=== PATIENT | female | born 1995 | race Hispanic/Latino ===

== ENCOUNTER 2018-10-25 23:00 | Inpatient (IN) | payer OTHER ==
[2018-10-27 01:05] VITALS: BMI 56.7
[2018-10-27] MEDS ORDERED: Lidocaine 1% (PF) 30 ML VIAL SC PRN (01:16)
[2018-10-27] MEDS ORDERED: Ondansetron PF 4 MG/2 ML Vial IVP PRN ×3 (01:16→23:24)
[2018-10-27] MEDS ORDERED: Promethazine HCl 25 MG/ML VIAL IM PRN ×3 (01:16→23:24)
[2018-10-27] MEDS ORDERED: NS w/ Oxytocin 10 units 500 ML IV SCH (01:16)
[2018-10-27] MEDS ORDERED: NS / Oxytocin 40 units/1000ml 1,000 ML IV PRN (01:16)
[2018-10-27] MEDS ORDERED: Ibuprofen 800 MG TAB PO PRN (01:16)
[2018-10-27] MEDS ORDERED: Diphenoxylate HCl/Atropine Tablet PO PRN (01:16)
[2018-10-27] MEDS ORDERED: Penicillin G Potassium 5 MILL.UNITS in Sodium Chloride 0.9% 100 ML IVPB SCH (01:16)
[2018-10-27] MEDS ORDERED: Carboprost 250 MCG/ML AMP IM PRN (01:16)
[2018-10-27] MEDS ORDERED: HYDROcodone/Acetaminophen 5/325 mg Tablet PO PRN (01:16)
[2018-10-27] MEDS ORDERED: Methylergonovine 0.2 MG/ML VIAL IM PRN (01:16)
[2018-10-27] MEDS ORDERED: Butorphanol Tartrate 1 MG/ML VIAL SLOW IVP PRN (01:16)
[2018-10-27] MEDS: Lactated Ringer's 1,000 ML IV SCH ×3 (01:45→15:58)
[2018-10-27 01:52] LABS: Hemoglobin 13.2 g/dL (12.0-16.0); Mean Corpuscular Volume 88.7 fL (78.0-98.0); Mean Platelet Volume 8.5 fL (7.4-10.4); Platelet Count 285 thou/uL (130-400); RBC Distribution Width 11.2 % (11.5-14.5); Red Blood Cell (RBC) Count 4.24 mill/uL (4.20-5.40); White Blood Cell (WBC) Count 8.2 thou/uL (4.8-10.8)
[2018-10-27 02:25] LABS: HBSAg Index 0.18 S/CO (0-0.99); Hep B Surf Ag Non-Reactive S/CO (NonReactive)
[2018-10-27 05:48] LABS: Syphilis Antibody Nonreactive (Nonreactive); Syphilis Antibody Index 0.03 S/CO (<1.00 Non-Reactive)
[2018-10-27] MEDS: Penicillin G 2.5 MILL.units 2.5 MILL.UNITS in Premix Bag 1 BAG IVPB SCH ×4 (06:09→20:18)
[2018-10-27] MEDS: NS w/ Oxytocin 10 units 500 ML IV SCH (06:10)
[2018-10-27] MEDS: Misoprostol 100 MCG TAB PO SCH (06:10)
[2018-10-27] MEDS ORDERED: Fentanyl 4 mcg/Bup 0.1% Cadd 100 ML ONE ×3 (15:25→23:09)
[2018-10-27] MEDS ORDERED: Lactated Ringer's 500 ML IV PRN (16:17)
[2018-10-27] MEDS ORDERED: diphenhydrAMINE 50 MG/ML VIAL IVP PRN ×2 (16:17→23:24)
[2018-10-27] MEDS ORDERED: ePHEDrine/0.9% NaCl/PF SYRINGE 50 mg/10 ml SLOW IVP PRN (16:17)
[2018-10-27] MEDS ORDERED: Acetaminophen 325 MG TAB PO PRN (16:17)
[2018-10-27] MEDS ORDERED: Naloxone HCl 0.4 mg/ml Vial IVP PRN ×4 (16:17→23:24)
[2018-10-27] MEDS ORDERED: Eucerin (Mineral Oil/Petrolatum,White) 30 gm Jar TOP PRN (16:17)
[2018-10-27] MEDS ORDERED: Fentanyl 4 mcg/Bupivacaine 0.1% Cassette 100 ML EPIDURAL SCH (16:30)
[2018-10-27] MEDS ORDERED: Communication Order-Pharmacy FS SCH ×2 (16:30→23:30)
[2018-10-27] MEDS ORDERED: CEFAZOLIN 2 GM/50 ML BAG ONE (23:17)
--- NOTE | 2018-10-27 23:18 | PDOC.EVN ---
Event Note - Event Note Event Note: Asked to examine pt. by Dr. Arthur. SVE by me is tight 5/ vtx high. Thick mec. seen. FHT stable. Ucs q 2-3 mins. Report given to [address] Arthur; wants to proceed with 1* C/S.
[2018-10-27] MEDS ORDERED: Naloxone HCl 0.4 mg/ml Vial IV PRN (23:24)
[2018-10-27] MEDS ORDERED: Promethazine HCl 25 MG SUPP PR PRN (23:24)
[2018-10-27] MEDS ORDERED: Ketorolac Tromethamine 30 MG/ML VIAL IVP PRN (23:24)
[2018-10-27] MEDS ORDERED: Meperidine HCl/PF 25 MG/ML VIAL SLOW IVP PRN (23:24)
[2018-10-27] MEDS ORDERED: L&D-Morphine 4 MG/ML VIAL SLOW IVP PRN (23:24)
[2018-10-27] MEDS ORDERED: HYDROmorphone 2 MG/ML VIAL SLOW IVP PRN (23:24)
[2018-10-27] MEDS ORDERED: Ondansetron HCl/PF 4 MG/2 ML Vial IVP PRN (23:24)
[2018-10-27] MEDS ORDERED: Hydrocerin (Eucerin) Cream 120 gm Jar TOP PRN (23:24)
[2018-10-27] MEDS ORDERED: Lidocaine 2% 10 ML INJ ONE (23:26)
[2018-10-27] MEDS ORDERED: Ketorolac Tromethamine 30 MG/ML VIAL IVP SCH (23:30)
[2018-10-27] MEDS ORDERED: CEFAZOLIN 1 GM VIAL ONE (23:45)
[2018-10-27] MEDS ORDERED: Ketorolac Tromethamine 30 MG/ML VIAL ONE (23:53)
[2018-10-27] MEDS ORDERED: Dexamethasone 4 mg/ml Vial ONE (23:53)
[2018-10-27] MEDS ORDERED: Oxytocin 10 UNITS/ML VIAL ONE (23:53)
[2018-10-27] MEDS ORDERED: Ondansetron PF 4 MG/2 ML Vial ONE (23:53)
[2018-10-28] MEDS ORDERED: Fentanyl 100 MCG/2 ML VIAL ONE (00:03)
[2018-10-28] MEDS ORDERED: Meperidine HCl/PF 25 MG/ML VIAL ONE (00:04)
[2018-10-28] MEDS ORDERED: Morphine PF 1 MG/ML SYR ONE (00:08)
[2018-10-28 00:15] LABS: Actual Bicarbonate (HCO3v) 24 mEq/L (22-28); Base Excess -1.6 mEq/L (-2.0 to +3.0); pH (Cord, venous) 7.35 (7.32-7.43)
[2018-10-28 00:16] LABS: Actual Bicarbonate (HCO3a) 23.5 mEq/L (22-28); Base Excess (BEa) -3.4 mEq/L (-2.0 to +3.0)
[2018-10-28] MEDS ORDERED: diphenhydrAMINE 25 MG CAP PO PRN (02:38)
[2018-10-28] MEDS ORDERED: Lanolin Ointment 7 GM TUBE TOP PRN (02:38)
[2018-10-28] MEDS ORDERED: Ondansetron PF 4 MG/2 ML Vial IVP PRN (02:38)
[2018-10-28] MEDS ORDERED: Bisacodyl 10 MG SUPP PR PRN (02:38)
[2018-10-28] MEDS ORDERED: Meperidine HCl/PF 25 MG/ML VIAL IM PRN (02:38)
[2018-10-28] MEDS ORDERED: NS / Oxytocin 40 units/1000ml 1,000 ML IV SCH (02:38)
[2018-10-28 07:06] LABS: Hemoglobin 11.8 g/dL (12.0-16.0); Mean Corpuscular HGB CONC 34.1 g/dL (32.0-36.0); Mean Corpuscular Hemoglobin 30.3 pg (27.0-31.0); Mean Corpuscular Volume 88.8 fL (78.0-98.0); Platelet Count 233 thou/uL (130-400); Red Blood Cell (RBC) Count 3.91 mill/uL (4.20-5.40); White Blood Cell (WBC) Count 14.1 thou/uL (4.8-10.8)
--- NOTE | 2018-10-28 07:06 | OP ---
DATE OF PROCEDURE: 10/28/2018 RESIDENT SURGEON: Dharmesh Ivey MD. CONTINUING EDUCATION DEAN SURGEON: Ochoa Vizcarra MD. PRIMARY SURGEON: Claude Arthur MD. PROCEDURE PERFORMED: Primary low-transverse . PREOPERATIVE DIAGNOSES: 1. Term intrauterine . 2. Thick meconium. 3. Failure to progress. 4. Morbid obesity. POSTOPERATIVE DIAGNOSES: 1. Term intrauterine . 2. Thick meconium. 3. Failure to progress. 4. Morbid obesity. ANESTHESIA: Epidural. INDICATIONS FOR PROCEDURE: The patient is a 23-year-old G1, P0 female at 40-2/ 7th weeks' gestation, who presents for labor symptoms. AROM was completed and showed thick meconium. The patient failed to progress past 5 cm. DESCRIPTION OF PROCEDURE: After risks, benefits, and alternatives were explained to the patient, she gave informed consent. Preoperative antibiotics included 2 g cefazolin. The patient was taken to the operating room, where epidural anesthesia was found to be sufficient. She was placed in supine position with left tilt, prepped and draped in usual sterile fashion. A Pfannenstiel incision was made with scalpel and carried down to the level of fascia, which was sharply nicked. All bleeders were cauterized. The fascial cut was extended bilaterally with Pillai scissors. The inferior and superior cut edges of the fascia were elevated with Tarun clamps and the underlying rectus muscles were sharply and bluntly dissected free. The recti were divided digitally and retracted manually. The peritoneum was entered bluntly and retracted manually. The bladder blade was placed. A low-transverse score was made with the scalpel and the uterus was entered in the midline with the scalpel. Thick meconium was appreciated. The hysterotomy was extended manually. The infant was noted to be vertex and easily delivered with fundal pressure. Mouth and nares were bulb suctioned. Cord was clamped and cut , and grossly normal female handed to the awaiting nurse. Cord blood and cord gas were obtained. Placenta was manually extracted, found to be intact with three-vessel cord and discarded. The uterus was externalized and the endometrium was curetted with dry lap. Bladder blade was replaced and the uterus was closed with running 0 Vicryl suture in a running nonlocking fashion. Three figure-of- eight sutures were placed using 0 Vicryl. Following this, hemostasis was noted. The abdomen was irrigated and suctioned free of clots. The uterus was internalized and the hysterotomy again noted to be hemostatic. The peritoneum was closed using 2 -0 Vicryl. The fascia was closed using a running nonlocking 0 Vicryl suture. Subcutaneous tissue was irrigated and bleeders were cauterized. The subcutaneous tissue was approximated with 3 simple interrupted 0 Vicryl sutures. The skin was approximated with rohini and a wound VAC was placed. All counts were correct. The patient tolerated the procedure well and was taken to the recovery room in stable condition. QUANTITATIVE BLOOD LOSS: 696ml COMPLICATIONS: None. SPECIMENS: Cord gas, cord blood, and placenta sent to lab. FINDINGS: Grossly normal female . DRAINS: Betancourt to gravity draining clear urine. Job ID: [id number] [facility]
[2018-10-28] MEDS: Misoprostol 100 MCG TAB PO SCH (07:26)
[2018-10-28] MEDS: Ibuprofen 800 MG TAB PO SCH ×3 (07:28→20:48)
[2018-10-28] MEDS: Penicillin G 2.5 MILL.units 2.5 MILL.UNITS in Premix Bag 1 BAG IVPB SCH ×2 (07:33→07:34)
[2018-10-28] MEDS: NS w/ Oxytocin 10 units 500 ML IV SCH (07:34)
[2018-10-28] MEDS: Lactated Ringer's 1,000 ML IV SCH (07:34)
[2018-10-28] MEDS: Docusate Calcium (SURFAK) 240 MG CAP PO SCH ×2 (08:30→20:48)
[2018-10-28] MEDS: Ferrous Sulfate 325 MG TAB PO SCH ×2 (08:30→22:57)
[2018-10-28] MEDS: Prenatal Vitamin 1 TAB PO SCH (08:33)
[2018-10-28] MEDS ORDERED: Ondansetron PF 4 MG/2 ML Vial ONE (12:46)
[2018-10-28] MEDS ORDERED: Ketorolac Tromethamine 30 MG/ML VIAL ONE (12:46)
[2018-10-28] MEDS ORDERED: Dexamethasone 20 MG/5 ML VIAL ONE (12:46)
[2018-10-28] MEDS: HYDROcodone/Acetaminophen 5/325 mg Tablet PO PRN (20:48)
[2018-10-28] MEDS: Simethicone Chewable 80 MG TAB PO PRN (20:48)
--- NOTE | 2018-10-29 01:02 | PDOC.PP ---
Post Progress Note Post Day #: 1 Subjective: Patient doing well. No significant overnight events. Patient tolerating PO. She has been ambulating without difficulty. Minimal lochia. PO intake tolerated: yes Flatus: yes Ambulation: yes Vital Signs (12 hours) Temp Pulse Resp BP Pulse Ox 10/28/18 20:00 98.3 F 82 16 127/80 97 10/28/18 14:35 98.3 F 87 18 131/77 95 Weight Weight 136.078 kg - Physical Examination General: NAD Cardiovascular: no m/r/g, RRR Respiratory: clear to auscultation bilaterally, non-labored breathing Abdominal: + bowel sounds, lochia (like that of period), no distention, appropriately TTP Fundus firm & at: umbilicus Extremities: negative homans (B) Deviation from normal: Wound vac in place, no leaking Neurological: no gross focal deficits Psychiatric: A&Ox3, normal affect Result Diagrams: 10/28/18 06:38 Additional Labs: Post Labs Blood Type O POSITIVE 10/27/18 01:43 Hep Bs Antigen Non-Reactive S/CO (NonReactive) 10/27/18 01:43 (1) S/P primary low transverse Code(s): Z98.891 - HISTORY OF UTERINE SCAR FROM PREVIOUS SURGERY Status: Acute (2) Term delivered Code(s): O80 - ENCOUNTER FOR FULL-TERM UNCOMPLICATED DELIVERY Status: Acute (3) Obesity Code(s): E66.9 - OBESITY, UNSPECIFIED Status: Chronic (4) Positive GBS test Code(s): B95.1 - STREPTOCOCCUS, GROUP B, CAUSING DISEASES CLASSD ELSWHR Status : Acute - Assessment/Plan 1. s/p pLTCS for FTP, obesity - Uncomplicated pLTCS - routine PP care - Wound vac in place - Encourage ambulation 2. GBS positive - Patient had pLTCS 3. Obesity - Wound vac placed after c/s 4. Term , delivered - See plan as above Dispo: Continue routine PP care. <Katharine Holguin - Last Filed: 10/29/18 01:04> Vital Signs (12 hours) Temp Pulse Resp BP Pulse Ox 10/28/18 20:00 98.3 F 82 16 127/80 97 10/28/18 14:35 98.3 F 87 18 131/77 95 Weight Weight 300 lb Result Diagrams: 10/28/18 06:38 Additional Labs: Post Labs Blood Type O POSITIVE 10/27/18 01:43 Hep Bs Antigen Non-Reactive S/CO (NonReactive) 10/27/18 01:43 - Assessment/Plan Faculty note: Postop day 1...no acute concerns. Continue routine PP care <Aaron Thornton - Last Filed: 10/29/18 01:09>
[2018-10-29] MEDS: HYDROcodone/Acetaminophen 5/325 mg Tablet PO PRN ×4 (01:10→22:31)
[2018-10-29] MEDS: Ibuprofen 800 MG TAB PO SCH ×3 (05:14→21:07)
[2018-10-29] MEDS: Prenatal Vitamin 1 TAB PO SCH (08:44)
[2018-10-29] MEDS: Docusate Calcium (SURFAK) 240 MG CAP PO SCH ×2 (08:45→21:07)
[2018-10-29] MEDS: Ferrous Sulfate 325 MG TAB PO SCH ×2 (11:21→20:23)
[2018-10-29] MEDS: Simethicone Chewable 80 MG TAB PO PRN (21:07)
--- NOTE | 2018-10-30 00:52 | PDOC.PP ---
Post Progress Note Post Day #: POD#2 Subjective: Resting comfortably. C/o occasional incision pain. PO intake tolerated: yes Flatus: no Ambulation: yes Vital Signs (12 hours) Temp Pulse Resp BP BP Pulse Ox 10/29/18 20:00 97.7 F 79 16 105/61 99 10/29/18 15:15 97.8 F 84 18 123/73 97 Weight Weight 136.078 kg - Physical Examination General: NAD Respiratory: non-labored breathing Abdominal: no distention Psychiatric: A&Ox3, normal affect Result Diagrams: 10/28/18 06:38 Additional Labs: Post Labs Blood Type O POSITIVE 10/27/18 01:43 Hep Bs Antigen Non-Reactive S/CO (NonReactive) 10/27/18 01:43 - Assessment/Plan Stable postop. Advance diet. Ambulate.
[2018-10-30] MEDS ORDERED: Sodium Chloride 0.9% 10 ML ONE (00:54)
[2018-10-30] MEDS: HYDROcodone/Acetaminophen 5/325 mg Tablet PO PRN ×2 (03:12→17:04)
[2018-10-30] MEDS: Ibuprofen 800 MG TAB PO SCH ×3 (05:31→21:44)
[2018-10-30] MEDS ORDERED: Bupivacaine/Epinephrine 0.25% 30 ML VIAL ONE (07:22)
[2018-10-30] MEDS: Ferrous Sulfate 325 MG TAB PO SCH ×2 (09:00→21:43)
[2018-10-30] MEDS: Docusate Calcium (SURFAK) 240 MG CAP PO SCH ×2 (09:01→21:43)
[2018-10-30] MEDS: Prenatal Vitamin 1 TAB PO SCH (09:01)
[2018-10-31] MEDS: HYDROcodone/Acetaminophen 5/325 mg Tablet PO PRN (02:27)
[2018-10-31] MEDS: Ibuprofen 800 MG TAB PO SCH (06:23)
[2018-10-31 08:08] VITALS: BP 136/75; TEMP 98
[2018-10-31] MEDS: Prenatal Vitamin 1 TAB PO SCH (08:57)
[2018-10-31] MEDS: Docusate Calcium (SURFAK) 240 MG CAP PO SCH (08:57)
[2018-10-31] MEDS: Ferrous Sulfate 325 MG TAB PO SCH (08:57)
--- NOTE | 2018-11-01 04:53 | DIS ---
DATE OF ADMISSION: 10/27/2018 DATE OF DISCHARGE: 10/31/2018 ADMITTING DIAGNOSES: 1. Intrauterine at 41 weeks. 2. Induction of labor. DISCHARGE DIAGNOSES: 1. Intrauterine at 41 weeks. 2. Induction of labor. 3. Failure to progress and primary section. PROCEDURE: Primary section. CONSULTATIONS: None. HOSPITAL COURSE: The patient is a 23-year-old G1, P0 female with an intrauterine at 41 weeks, present for induction of labor. Her induction was complicated by failure to progress or rest of labor and ultimately resulted in a primary . For complete details, please refer to the operative note. The patient's postoperative course has been uncomplicated. Today is postoperative day #3. The patient reports that she is tolerating p.o., having good pain control, voiding on her own and decreased lochia. Her vital signs this morning, blood pressure is 122/88, pulse of 82, respiratory rate is 16, saturating 100% on room air. In general, she appears to be in no acute distress. She is alert and oriented, cooperative, pleasant to interact with. Head; normocephalic, atraumatic. Fundus is firm. Her incision is clean, dry, intact with rohini. Extremities; nontender and nonedematous. Her post delivery hemoglobin and hematocrit are 11.8 and 34.7, platelets of 233,000. The patient is being discharged to home with ibuprofen and Tylenol No. 3 for pain control. She has instructions to follow up with her primary OB, Dr. Arthur, in the next few days for staple removal and incision check. She has instructions to seek medical attention sooner if she experiences fever, increasing pain, bleeding, drainage, or redness at the incision site. Job ID: [id number]
== END 2018-10-31 12:10 | disposition home or self-care (01) | DRG 787 ==
LOC: L&D 10-27 00:32 → 3SW 10-28 14:23
PROVIDERS: ADMIT Family Medicine; ATTEND Family Medicine
PROC: 10907ZC Drainage of Amniotic Fluid, Therapeutic from Products of Conception, Via Natural or Artificial Opening (ICD-10-PCS; 2018-10-27)
PROC: 10D00Z1 Extraction of Products of Conception, Low, Open Approach (ICD-10-PCS; principal; 2018-10-28)
DX: O64.8XX0 Obstructed labor due to other malposition and malpresentation, not applicable or unspecified (principal); Z68.43 Body mass index [BMI] 50.0-59.9, adult; O98.813 Other maternal infectious and parasitic diseases complicating pregnancy, third trimester; Z3A.40 40 weeks gestation of pregnancy; Z37.0 Single live birth; O77.0 Labor and delivery complicated by meconium in amniotic fluid; E66.01 Morbid (severe) obesity due to excess calories; Z71.3 Dietary counseling and surveillance; O99.213 Obesity complicating pregnancy, third trimester; O48.0 Post-term pregnancy; Z3A.41 41 weeks gestation of pregnancy; B95.1 Streptococcus, group B, as the cause of diseases classified elsewhere
CPT/HCPCS: 36415; 51702; 82805; 85027; 86780; 86850; 86900; 86901; 87340; 88307; J0690; J1100; J1885; J2175; J2274; J2405; J2540; J2590; J3010; J7050

== ENCOUNTER 2021-03-08 12:58 | Observation (INO) | payer OTHER, SELFPAY ==
[~2021-03-08 12:58] MED LIST: Iopamidol-370 76% 500 ML 1 ML ONE
[2021-03-08] MEDS ORDERED: Ondansetron PF 4 MG/2 ML Vial ONE (13:37)
[2021-03-08] MEDS ORDERED: Morphine 4 MG/ML VIAL ONE (13:37)
[2021-03-08 13:49] LABS: #Lymphocytes 1.4 thou/uL (1.20-3.40); #Monocytes 0.4 thou/uL (0.11-0.59); #Neutrophils 2.7 thou/uL (1.40-6.50); %Basophils 0.5 % (0.0-1.0); %Eosinophils 0.6 % (0.0-10.0); %Lymphocytes 30.2 % (21.0-51.0); %Monocytes 7.9 % (0.0-10.0); %Neutrophils 60.7 % (42.0-75.0); Hemoglobin 13.4 g/dL (12.0-16.0); Mean Corpuscular HGB CONC 33.5 g/dL (32.0-36.0); Mean Corpuscular Hemoglobin 31.3 pg (27.0-31.0); Mean Corpuscular Volume 93.5 fL (78.0-98.0); Mean Platelet Volume 8.3 fL (7.4-10.4); Platelet Count 244 thou/uL (130-400); RBC Distribution Width 10.9 % (11.5-14.5); Red Blood Cell (RBC) Count 4.27 mill/uL (4.20-5.40); White Blood Cell (WBC) Count 4.5 thou/uL (4.8-10.8)
[2021-03-08 13:54] LABS: BHCG - Serum Negative (NEGATIVE); Pregs Control Background? CLEAR/WHITE (CLR/WHITE); Pregs Control Bar Appear? YES (CONTROL BAR)
[2021-03-08 14:10] LABS: ALT (SGPT) 408 U/L (8-55); AST (SGOT) 475 U/L (5-34); Albumin 4.3 g/dL (3.5-5.0); Alkaline Phosphatase 114 U/L (40-110); Anion Gap 11 mmol/L (10-20); BUN (Urea Nitrogen) 9 mg/dL (7.0-18.7); Bilirubin, Total 2.1 mg/dL (0.2-1.2); Calc. Creatinine Clearance 0 mL/min (70-130); Calcium 9.6 mg/dL (7.8-10.44); Carbon Dioxide 27 mmol/L (22-29); Chloride 104 mmol/L (98-107); Globulin 3.2 g/dL (2.4-3.5); Glucose 116 mg/dL (70-105); Lipase 12 U/L (8-78); Potassium 3.9 mmol/L (3.5-5.1); Protein, Total 7.5 g/dL (6.0-8.3); Sodium 138 mmol/L (136-145)
[2021-03-08 14:18] LABS: Pregnancy Test - Urine (BHCG) Negative (Negative); Pregu Control Background? CLEAR/WHITE (CLR/WHITE); Pregu Control Bar Appear? YES (CONTROL BAR); Specific Gravity 1.033 (1.002-1.036)
[2021-03-08 14:20] LABS: Bacteria/HPF None Seen HPF (None Seen); Bilirubin 1+ (Negative); Blood, Urine Negative (Negative); Clarity Clear (Clear); Glucose, Urine (Dipstick) Normal (Negative); Ketone, Urine Negative (Negative); Leukocyte 25 Leu/uL (Negative); Nitrite Negative (Negative); Protein, Urine (Dipstick) 50 mg/dL (Neg-Trace); RBC/HPF 0-3 HPF (0-3); Specific Gravity, Urine 1.033 (1.002-1.036); Urobilinogen 3 mg/dL (Less than 2)
[2021-03-08] MEDS ORDERED: Pantoprazole 40 MG VIAL ONE (16:36)
[2021-03-08] MEDS ORDERED: Dextrose 5% in Water 1,000 ML IV PRN (16:58)
[2021-03-08] MEDS ORDERED: Promethazine HCl 25 MG/ML VIAL IM PRN (16:58)
[2021-03-08] MEDS ORDERED: Mag-Al 1200 mg/1200 mg/30 ML UDCUP PO PRN (16:58)
[2021-03-08] MEDS ORDERED: Dextrose 50% Abboject 50 ML SYRINGE SLOW IVP PRN (16:58)
[2021-03-08] MEDS ORDERED: Calcium Carbonate 500 MG ChewTAB PO PRN (16:58)
[2021-03-08] MEDS ORDERED: hydrALAZINE 20 MG/ML VIAL SLOW IVP PRN (16:58)
[2021-03-08] MEDS ORDERED: Morphine 4 MG/ML VIAL SLOW IVP PRN (17:06)
[2021-03-08] MEDS: D5 1/2 NS w/20 mEq KCL 1,000 ML IV SCH (18:12)
[2021-03-08] MEDS: Ondansetron PF 4 MG/2 ML Vial IVP PRN (18:19)
[2021-03-08 18:41] VITALS: BMI 56.6
[2021-03-08] MEDS: Famotidine/PF 20 mg/2ml Vial SLOW IVP SCH (20:55)
[2021-03-08] MEDS: Famotidine 20 MG TAB PO SCH (20:58)
[2021-03-09 02:29] LABS: SARS-CoV-2 PCR by NAA Not Detected (NotDetected)
[2021-03-09] MEDS: D5 1/2 NS w/20 mEq KCL 1,000 ML IV SCH ×3 (02:37→20:42)
[2021-03-09] MEDS: HYDROcodone/Acetaminophen 10/325 mg Tablet PO PRN ×2 (04:06→20:36)
[2021-03-09] MEDS: Ondansetron PF 4 MG/2 ML Vial IVP PRN ×2 (04:10→17:15)
[2021-03-09 06:30] LABS: #Eosinphils 0.1 thou/uL (0.0-0.7); #Lymphocytes 1.7 thou/uL (1.20-3.40); #Monocytes 0.3 thou/uL (0.11-0.59); #Neutrophils 1.4 thou/uL (1.40-6.50); %Basophils 0.6 % (0.0-1.0); %Eosinophils 2.5 % (0.0-10.0); %Lymphocytes 48.2 % (21.0-51.0); %Neutrophils 40.7 % (42.0-75.0); Mean Corpuscular HGB CONC 32.8 g/dL (32.0-36.0); Mean Corpuscular Volume 94.5 fL (78.0-98.0); Mean Platelet Volume 9.3 fL (7.4-10.4); Platelet Count 200 thou/uL (130-400); RBC Distribution Width 11.1 % (11.5-14.5); Red Blood Cell (RBC) Count 3.87 mill/uL (4.20-5.40); White Blood Cell (WBC) Count 3.5 thou/uL (4.8-10.8)
[2021-03-09 06:53] LABS: ALT (SGPT) 437 U/L (8-55); AST (SGOT) 298 U/L (5-34); Albumin 3.6 g/dL (3.5-5.0); Alkaline Phosphatase 115 U/L (40-110); Anion Gap 12 mmol/L (10-20); BUN (Urea Nitrogen) 5 mg/dL (7.0-18.7); Bilirubin, Total 2.5 mg/dL (0.2-1.2); Calc. Creatinine Clearance 305 mL/min (70-130); Calcium 8.6 mg/dL (7.8-10.44); Carbon Dioxide 21 mmol/L (22-29); Chloride 109 mmol/L (98-107); Globulin 3.3 g/dL (2.4-3.5); Glucose 125 mg/dL (70-105); Lipase 10 U/L (8-78); Potassium 4.9 mmol/L (3.5-5.1); Protein, Total 6.9 g/dL (6.0-8.3); Sodium 137 mmol/L (136-145)
[2021-03-09] MEDS: Famotidine/PF 20 mg/2ml Vial SLOW IVP SCH ×2 (09:05→20:36)
[2021-03-09] MEDS ORDERED: Bupivacaine 0.25% HCL 30 ML VIAL ONE (09:44)
[2021-03-09] MEDS ORDERED: Lidocaine 1% w/Epinephrine 1:100K 20 ML VIAL ONE (09:44)
[2021-03-09] MEDS ORDERED: Iothalamate Meglumine 60% 50 ML VIAL FS ONE (09:44)
[2021-03-09] MEDS ORDERED: Midazolam HCl 2 mg/2 ml Vial ONE (09:52)
[2021-03-09] MEDS ORDERED: Fentanyl 100 MCG/2 ML VIAL ONE ×3 (09:52→11:39)
[2021-03-09] MEDS ORDERED: Rocuronium Bromide 10 MG/ML (10ML VIAL) ONE (09:59)
[2021-03-09] MEDS ORDERED: Dexamethasone 20 MG/5 ML VIAL ONE (09:59)
[2021-03-09] MEDS ORDERED: PROPOFOL 200 MG/20 ML VIAL ONE (09:59)
[2021-03-09] MEDS ORDERED: Lidocaine 1% PF 5 ML VIAL ONE (09:59)
[2021-03-09] MEDS ORDERED: Ondansetron PF 4 MG/2 ML Vial ONE ×2 (09:59→11:13)
[2021-03-09] MEDS ORDERED: Glycopyrrolate 0.2 MG/ML 5 ML SYRINGE ONE (09:59)
[2021-03-09] MEDS ORDERED: Promethazine HCl 25 MG/ML VIAL ONE (11:26)
[2021-03-09] MEDS ORDERED: Promethazine HCl 25 MG/ML VIAL IM PRN (11:32)
[2021-03-09] MEDS ORDERED: Promethazine HCl 25 MG/ML VIAL SLOW IVP PRN (11:32)
[2021-03-09] MEDS ORDERED: Ondansetron HCl/PF 4 MG/2 ML Vial IVP PRN (11:32)
[2021-03-09] MEDS ORDERED: HYDROmorphone 2 MG/ML VIAL SLOW IVP PRN (11:32)
[2021-03-09] MEDS: Famotidine 20 MG TAB PO SCH ×2 (12:42→20:42)
[2021-03-09] MEDS: Morphine 4 MG/ML VIAL SLOW IVP PRN ×4 (13:47→22:20)
[2021-03-10] MEDS: HYDROcodone/Acetaminophen 10/325 mg Tablet PO PRN ×2 (04:55→21:29)
[2021-03-10] MEDS: D5 1/2 NS w/20 mEq KCL 1,000 ML IV SCH ×2 (04:55→17:58)
[2021-03-10] MEDS: Ondansetron PF 4 MG/2 ML Vial IVP PRN (04:55)
[2021-03-10] MEDS: Morphine 4 MG/ML VIAL SLOW IVP PRN ×3 (04:56→23:22)
[2021-03-10 06:06] LABS: #Lymphocytes 1.3 thou/uL (1.20-3.40); #Monocytes 0.7 thou/uL (0.11-0.59); #Neutrophils 7.4 thou/uL (1.40-6.50); %Eosinophils 0.2 % (0.0-10.0); %Lymphocytes 13.5 % (21.0-51.0); %Monocytes 7.8 % (0.0-10.0); %Neutrophils 78.5 % (42.0-75.0); Hemoglobin 11.2 g/dL (12.0-16.0); Mean Corpuscular HGB CONC 33.3 g/dL (32.0-36.0); Mean Corpuscular Hemoglobin 31.6 pg (27.0-31.0); Mean Platelet Volume 9.1 fL (7.4-10.4); Platelet Count 291 thou/uL (130-400); RBC Distribution Width 11.2 % (11.5-14.5); Red Blood Cell (RBC) Count 3.55 mill/uL (4.20-5.40); White Blood Cell (WBC) Count 9.4 thou/uL (4.8-10.8)
[2021-03-10 06:39] LABS: ALT (SGPT) 437 U/L (8-55); AST (SGOT) 209 U/L (5-34); Albumin 3.8 g/dL (3.5-5.0); Alkaline Phosphatase 138 U/L (40-110); Anion Gap 16 mmol/L (10-20); BUN (Urea Nitrogen) 5 mg/dL (7.0-18.7); Bilirubin, Total 5.5 mg/dL (0.2-1.2); Calc. Creatinine Clearance 305 mL/min (70-130); Calcium 9.3 mg/dL (7.8-10.44); Carbon Dioxide 19 mmol/L (22-29); Chloride 105 mmol/L (98-107); Glucose 144 mg/dL (70-105); Lipase 8 U/L (8-78); Potassium 4.2 mmol/L (3.5-5.1); Protein, Total 6.8 g/dL (6.0-8.3); Sodium 136 mmol/L (136-145)
[2021-03-10] MEDS: Famotidine/PF 20 mg/2ml Vial SLOW IVP SCH (08:54)
[2021-03-10] MEDS: Famotidine 20 MG TAB PO SCH ×2 (08:55→20:16)
[2021-03-10] MEDS ORDERED: Indomethacin 50 MG SUPP ONE (11:52)
[2021-03-10] MEDS ORDERED: Iothalamate Meglumine 60% 50 ML VIAL FS ONE (11:53)
[2021-03-10] MEDS ORDERED: Fentanyl 100 MCG/2 ML VIAL ONE (13:23)
[2021-03-10] MEDS ORDERED: Midazolam HCl 2 mg/2 ml Vial ONE (13:23)
[2021-03-10] MEDS ORDERED: Piperacillin/Tazobactam 3.375 GM VIAL ONE (13:25)
[2021-03-10] MEDS ORDERED: Sodium Chloride 0.9% 100 ML ONE (13:25)
[2021-03-10] MEDS ORDERED: Succinylcholine 200 MG/10 ml SYRINGE FS ONE (13:34)
[2021-03-10] MEDS ORDERED: Lidocaine 1% PF 5 ML VIAL ONE (13:34)
[2021-03-10] MEDS ORDERED: PROPOFOL 200 MG/20 ML VIAL ONE (13:34)
[2021-03-10] MEDS ORDERED: Glycopyrrolate 0.2 MG/ML 5 ML SYRINGE ONE (13:34)
[2021-03-10] MEDS ORDERED: Dexamethasone 20 MG/5 ML VIAL ONE (13:34)
[2021-03-10] MEDS ORDERED: Rocuronium Bromide 10 MG/ML (10ML VIAL) ONE (13:34)
[2021-03-10] MEDS ORDERED: Ondansetron PF 4 MG/2 ML Vial ONE (13:34)
[2021-03-10] MEDS: Piperacillin/Tazobactam 3.375 GM in Sodium Chloride 0.9% 100 ML IVPB SCH ×2 (17:58→23:18)
[2021-03-11] MEDS: D5 1/2 NS w/20 mEq KCL 1,000 ML IV SCH ×2 (00:15→06:46)
[2021-03-11] MEDS: Famotidine/PF 20 mg/2ml Vial SLOW IVP SCH (00:15)
[2021-03-11] MEDS: Piperacillin/Tazobactam 3.375 GM in Sodium Chloride 0.9% 100 ML IVPB SCH (06:12)
[2021-03-11] MEDS: Famotidine 20 MG TAB PO SCH (09:33)
[2021-03-11] MEDS: HYDROcodone/Acetaminophen 10/325 mg Tablet PO PRN (09:36)
[2021-03-11 12:00] VITALS: BP 119/70; TEMP 98.6
[2021-03-11] MEDS: Ondansetron PF 4 MG/2 ML Vial IVP PRN (12:30)
== END 2021-03-11 14:40 | disposition home or self-care (01) ==
LOC: ERS 12:58 → SURG A 16:01
PROVIDERS: ADMIT Surgery; ATTEND Surgery
PROC: 0FT44ZZ Resection of Gallbladder, Percutaneous Endoscopic Approach (ICD-10-PCS; principal; 2021-03-09)
PROC: BF101ZZ Fluoroscopy of Bile Ducts using Low Osmolar Contrast (ICD-10-PCS; 2021-03-09)
PROC: 0FC98ZZ Extirpation of Matter from Common Bile Duct, Via Natural or Artificial Opening Endoscopic (ICD-10-PCS; 2021-03-10)
PROC: 0F798ZZ Dilation of Common Bile Duct, Via Natural or Artificial Opening Endoscopic (ICD-10-PCS; 2021-03-10)
DX: K80.67 Calculus of gallbladder and bile duct with acute and chronic cholecystitis with obstruction (principal); R79.89 Other specified abnormal findings of blood chemistry; F12.10 Cannabis abuse, uncomplicated; Z20.822 Contact with and (suspected) exposure to COVID-19
CPT/HCPCS: 36415; 47532; 74177; 74330; 76705; 80053; 81003; 81015; 81025; 83690; 84703; 85025; 87086; 87635; 88304; 94760; 96365; 96372; 96374; 96375; 96376; C9113; G0378; J0690; J1100; J2250; J2270; J2405; J2543; J2550; J2704; J3010; J3480; J3490; Q9961; Q9967; S0020; S0028; U0003; U0005

== ENCOUNTER 2021-08-31 10:39 | Outpatient (CLI) | payer MEDICAID | END 2021-08-31 10:40 | disposition home or self-care (01) | LOC: BICRAD 10:39 | PROVIDERS: ATTEND Surgery | DX: R10.9 Unspecified abdominal pain (principal) | CPT/HCPCS: 36415; 74019; 80053; 83690; 85025 ==

== ENCOUNTER 2022-07-29 14:32 | Outpatient (CLI) | payer OTHER | END 2022-07-29 14:33 | disposition home or self-care (01) | LOC: BICULT 14:32 | PROVIDERS: ATTEND Family Medicine | DX: O09.892 Supervision of other high risk pregnancies, second trimester (principal); Z3A.22 22 weeks gestation of pregnancy | CPT/HCPCS: 76805 ==